=== PATIENT | male | born 1990 | race American Indian/Alaskan Native ===

== ENCOUNTER 2016-04-11 19:37 | Emergency (ER) | payer OTHER ==
[2016-04-12] MEDS ORDERED: TYLENOL #3 PO ONE (01:32)
[2016-04-12] MEDS ORDERED: AUGMENTIN 875 MG PO ONE (01:32)
--- NOTE | 2016-04-12 01:32 | Emergency Department Report ---
HPI - General Chief Complaint: Skin/Abscess/Foreign Body Time Seen by Provider: 04/12/16 01:25 - HPI HPI: 25-year-old male presents to the ED complaining of right-sided cheek swelling and pain since Tuesday. Patient states pain is progressively was cheek has gotten bigger since the past week. Patient denies tooth pain or mouth pain. Patient denies fevers/chills/nausea/vomiting/abdominal pain/injury to the face, chest pain, shortness of breath, diarrhea or any other problems ED Past Medical Hx - Past Medical History Previous Medical History?: No - Surgical History Past Surgical History?: No - Social History Smoking Status: Never Smoker Substance Use Type: Marijuana - Medications Home Medications: Home Medications Medication Instructions Recorded Confirmed Last Taken Type Acetaminophen/Codeine 1 tab PO Q6H #12 tablet 04/12/16 Unknown Rx [Acetaminophen-Codeine #3 TAB] Cephalexin [Keflex] 500 mg PO BID #20 capsule 04/12/16 Unknown Rx Ibuprofen [Motrin] 800 mg PO Q8HR PRN #30 tablet 04/12/16 Unknown Rx ED Review of Systems ROS: Stated complaint: RT SIDE FACIAL SWELLING Other details as noted in HPI Constitutional: denies: chills, fever, malaise, weakness Eyes: denies: eye pain, eye discharge, vision change ENT: denies: ear pain, throat pain, dental pain, hearing loss Respiratory: denies: cough, shortness of breath, wheezing Cardiovascular: denies: chest pain, palpitations Endocrine: no symptoms reported Gastrointestinal: denies: abdominal pain, nausea, diarrhea, hematochezia Genitourinary: denies: urgency, dysuria, frequency, hematuria, discharge Musculoskeletal: denies: back pain, joint swelling, arthralgia Skin: denies: rash, lesions Neurological: denies: headache, weakness, numbness, paresthesias, confusion Psychiatric: denies: anxiety, depression Hematological/Lymphatic: denies: easy bleeding, easy bruising Physical Exam - Physical Exam Vital Signs: Vital Signs 04/11/16 04/11/16 21:57 23:44 Temperature 98.3 F 98.3 F Pulse Rate 67 67 Respiratory 18 18 Rate Blood Pressure 129/89 Blood Pressure 129/89 [Left] O2 Sat by Pulse 100 100 Oximetry Physical Exam: GENERAL: Alert and oriented x3, no apparent distress, Normal Gait, atraumatic. HEAD: Head is normocephalic and a-traumatic. EYES: Extra ocular muscles are intact. Pupils are equal, round, and reactive to light and accommodation. EARS: symetrical, atraumatic,, tympanic membrance non inflamed. gross auditory nml bilaterally. NOSE: Nose symetrical, Nontender,Nares appeared normal. MOUTH:Mouth is well hydrated and without lesions. Tonsils nonerythematous or swollen, Uvula midline, Tongue not elevated. Mucous membranes are moist. Posterior pharynx clear, no exudate or lesions. Patent airways. NECK: Supple. Non edematous, No carotid bruits. No lymphadenopathy or thyromegaly. LUNGS: Symetrical with respiration, No wheezing, no rales or crackles, CTAB. HEART: S1, S2 present, regular rate and rhythm without murmur, no rubs, no gallops. ABDOMEN: No organomegaly was noted,Positive bowel sounds, soft, and non- distended. . Nontender to palpation on all Quadrants, NO CVA tenderness. EXTREMITIES/MUSCULOSKELETAL: No cyanosis, clubbing, rash, lesions or edema. Full ROM bilaterally. UE/LE Pulses 2+ bilaterally. NEUROLOGIC: No focal Deficit, Cranial nerves II through XII are grossly intact. No loss of sensation, SKIN: Warm and dry, right lower cheek edema, 4-5 cm abscess palpated, not fluctuant. No lesions, No ulceration or induration present. ED Course Vital Signs 04/11/16 04/11/16 21:57 23:44 Temperature 98.3 F 98.3 F Pulse Rate 67 67 Respiratory 18 18 Rate Blood Pressure 129/89 Blood Pressure 129/89 [Left] O2 Sat by Pulse 100 100 Oximetry ED Medical Decision Making - Medical Decision Making 25-year-old male presents with cellulitis/carbuncle right cheek ED course: Patient received 1 dose of Augmentin and 1 dose of T3 for pain medication. Discussed the patient to apply heat to swelling. warm compressions. 3 times a day Discussed the follow up with primary care physician. Discussed to take antibiotics as prescribed to help with the infection. Patient states he understands and will comply to follow-up. Critical care attestation.: If time is entered above; I have spent that time in minutes in the direct care of this critically ill patient, excluding procedure time. ED Disposition Clinical Impression: Carbuncle and furuncle of face Cellulitis Qualifiers: Site of cellulitis: face Qualified Code(s): L03.211 - Cellulitis of face Disposition: DISCHARGED TO HOME OR SELFCARE Is pt being admited?: No Does the pt Need Aspirin: No Condition: Stable Instructions: Cellulitis (ED), Folliculitis (ED) Prescriptions: Acetaminophen/Codeine [Acetaminophen-Codeine #3 TAB] 1 tab PO Q6H #12 tablet Cephalexin [Keflex] 500 mg PO BID #20 capsule Ibuprofen [Motrin] 800 mg PO Q8HR PRN #30 tablet PRN Reason: Pain Referrals: PRIMARY CARE,MD [Primary Care Provider] - 3-5 Days JONAH BENNETT MD [Referring] - 3-5 Days COCO RAMÍREZ MD [Referring] - 3-5 Days [facility] [place][Note 3] [Outside] - 3-5 Days [facility] [Outside] - 3-5 Days Forms: Work/School Release Form(ED), Accompanied Note Time of Disposition: 01:49
[2016-04-12 02:14] VITALS: BP 128/86
== END 2016-04-12 02:16 | disposition home or self-care (01) ==
LOC: ED 19:37
DX: L03.211 Cellulitis of face (principal); F12.10 Cannabis abuse, uncomplicated; Z79.1 Long term (current) use of non-steroidal anti-inflammatories (NSAID); Z79.2 Long term (current) use of antibiotics
CPT/HCPCS: 99282